=== PATIENT | male | born 1955 | race Caucasian/White ===

== ENCOUNTER 2021-05-15 04:35 | Day surgery (SDC) | payer BC, OTHER ==
[2021-03-21 14:39] VITALS: BMI 28.4
[2021-05-15 12:25] VITALS: TEMP 97.2
[2021-05-15 12:52] VITALS: BP 112/73; PULSE 57
== END 2021-05-15 13:15 | disposition home or self-care (01) ==
LOC: JASU-ENDO 04:35
PROVIDERS: ATTEND Internal Medicine Gastroenterology
PROC: 0DBL8ZX Excision of Transverse Colon, Via Natural or Artificial Opening Endoscopic, Diagnostic (ICD-10-PCS; 2021-05-15)
PROC: 0DBN8ZX Excision of Sigmoid Colon, Via Natural or Artificial Opening Endoscopic, Diagnostic (ICD-10-PCS; principal; 2021-05-15 11:00)
DX: Z86.010 Personal history of colon polyps (principal); Z80.0 Family history of malignant neoplasm of digestive organs; D12.3 Benign neoplasm of transverse colon; D12.5 Benign neoplasm of sigmoid colon; K57.30 Diverticulosis of large intestine without perforation or abscess without bleeding
CPT/HCPCS: 88305-TC